=== PATIENT | male | born 1970 | race Caucasian/White ===

== ENCOUNTER 2018-09-05 12:13 | Emergency (ER) | payer OTHER ==
[~2018-09-05] VITALS: Ht 175.3 cm; Wt 77.1 kg
[2018-09-05] MEDS ORDERED: MEDROLDOSEPACK PO (12:41)
[2018-09-05] MEDS ORDERED: AUGMENTIN 875-1 EACH PO (12:41)
[2018-09-05 12:53] VITALS: BP 131/88
== END 2018-09-05 12:54 | disposition home or self-care (01) ==
LOC: M.ERS 12:13
DX: J30.2 Other seasonal allergic rhinitis (principal); J01.90 Acute sinusitis, unspecified; Z02.79 Encounter for issue of other medical certificate